=== PATIENT | female | born 1950 | race Caucasian/White ===

== ENCOUNTER 2022-02-20 11:04 | Emergency (ER) | payer MEDICARE, OTHER ==
--- NOTE | 2022-02-20 11:31 | EDPHYS ---
Physician Documentation [facility] Name: Kanika Boateng Age: 72 yrs Sex: Female : 1950 Arrival Date: 02/20/2022 Time: 11:07 Bed Waiting Private MD: ED Physician Earnest Perez HPI: 02/20 11:27 This 72 yrs old Female presents to ER via Unassigned with complaints of Eye Problem. rn 11:27 The patient is experiencing redness, The patient sustained None. to the right eye, rn caused by an unknown mechanism. Onset: The symptoms/episode began/occurred 2 day(s) ago. Duration: the symptoms are continuous. Aggravated by nothing. Alleviated by nothing. Associated signs and symptoms: Pertinent negatives: fever, headache, runny nose. Severity of symptoms: At their worst the symptoms were mild in the emergency department the symptoms are unchanged. The patient has not experienced similar symptoms in the past. The patient has not recently seen a physician. Pt reports noticed right eyelid swelling a couple of days ago, is progressing, no eyeball pain or vision changes, no drainage, no fever. Does not wear contacts.. Historical: - Allergies: 11:28 No Known Allergies; ap3 - Home Meds: 11:28 Allopurinol Oral [Active]; famotidine Oral [Active]; montelukast oral [Active]; aspirin ap3 81 mg Oral cpDR [Active]; amlodipine oral [Active]; atorvastatin oral [Active]; Lisinopril Oral [Active]; Metoprolol Tartrate Oral [Active]; Zolpidem Tartrate Oral [Active]; - PMHx: 11:28 Hypertensive disorder; Hypercholesterolemia; Gout; ap3 - Immunization history:: Client reports having NOT received the Covid vaccine. - Social history:: Smoking status: Patient reports the use of cigarette tobacco products, denies chronic smoking, but will smoke occasionally. - Family history:: not pertinent. - Hospitalizations: : No recent hospitalization is reported. ROS: 11:27 Constitutional: Negative for fever, chills, and weight loss, Eyes: + right eye swelling rn and redness Exam: 11:27 Visual Acuity: Visual acuity is within normal limits. rn 11:27 Constitutional: This is a well developed, well nourished patient who is awake, alert, and in no acute distress. Head/Face: Normocephalic, atraumatic. Eyes: Left eye normal. Right eye with surroundign erythema, + stye/swelling right inner eyelid when everted. PERRL without painful eye movements. No erythema or conjunctiva. No hyphema or hypopyon. Vital Signs: 11:27 BP 167 / 90; Pulse 70; Resp 17; Temp 98.7; Pulse Ox 100% ; Weight 61.23 kg; Height 5 ap3 ft. 7 in. (170.18 cm); 11:27 Body Mass Index 21.14 (61.23 kg, 170.18 cm) ap3 MDM: 11:08 Patient medically screened. rn 11:27 Differential diagnosis: periorbital cellulitis, stye. Data reviewed: vital signs, rn nurses notes, and as a result, I will discharge patient. Counseling: I had a detailed discussion with the patient and/or guardian regarding: the historical points, exam findings, and any diagnostic results supporting the discharge/admit diagnosis, the need for outpatient follow up, to return to the emergency department if symptoms worsen or persist or if there are any questions or concerns that arise at home. Special discussion: I discussed with the patient/guardian in detail that at this point there is no indication for admission to the hospital. It is understood, however, that if the symptoms persist or worsen the patient needs to return immediately for re-evaluation. Based on the history and exam findings, there is no indication for further emergent testing or inpatient evaluation. I discussed with the patient/guardian the need to see the opthamologist for further evaluation of the symptoms. Administered Medications: No medications were administered Disposition Summary: 02/20/22 11:30 Discharge Ordered Location: Home rn Problem: new rn Symptoms: are unchanged rn Condition: Stable rn Diagnosis - Hordeolum internum right upper eyelid rn - Periorbital cellulitis rn Followup: rn - With: Private Physician - When: As needed - Reason: Recheck today's complaints, Re-evaluation by your physician Discharge Instructions: - Discharge Summary Sheet rn - Stye rn - Preseptal Cellulitis, Adult rn Forms: - Medication Reconciliation Form rn - Thank You Letter rn - Antibiotic consultant internship - Prescription Opioid Use rn Prescriptions: - Cephalexin 500 mg Oral Capsule - take 1 capsule by ORAL route every 12 hours for 10 days; 20 capsule; Refills: rn 0, Product Selection Permitted - Bactrim DS 800-160 mg Oral Tablet - take 1 tablet by ORAL route every 12 hours for 10 days; 20 tablet; Refills: 0, rn Product Selection Permitted Signatures: Earnest Perez MD MD rn Prokisch, Amanda, RN RN ap3
--- NOTE | 2022-02-20 11:31 | ER ---
Nurse's Notes [facility] Name: Kanika Boateng Age: 72 yrs Sex: Female : 1950 Arrival Date: 02/20/2022 Time: 11:07 Bed Waiting Private MD: Diagnosis: Hordeolum internum right upper eyelid;Periorbital cellulitis Presentation: 02/20 11:27 Chief complaint: Patient states: she has been having right eye swelling for approx 4 ap3 days. patient reports she noticed it was getting bigger and wanted to come be evaluated. Coronavirus screen: At this time, the client does not indicate any symptoms associated with coronavirus-19. Ebola Screen: No symptoms or risks identified at this time. Initial Sepsis Screen: Does the patient meet any 2 criteria? No. Patient's initial sepsis screen is negative. Does the patient have a suspected source of infection? No. Patient's initial sepsis screen is negative. Risk Assessment: Do you want to hurt yourself or someone else? Patient reports no desire to harm self or others. Onset of symptoms was February 16, 2022. 11:27 Method Of Arrival: Ambulatory ap3 11:27 Acuity: VERONICA 4 ap3 Triage Assessment: 11:28 General: Appears in no apparent distress. Behavior is calm, cooperative. Pain: ap3 Complains of pain in right eye. EENT: Eyes swelling noted to right eye. Neuro: Level of Consciousness is awake, alert, obeys commands, Oriented to person, place, time, situation, Appropriate for age. Historical: - Allergies: 11:28 No Known Allergies; ap3 - Home Meds: 11:28 Allopurinol Oral [Active]; famotidine Oral [Active]; montelukast oral [Active]; aspirin ap3 81 mg Oral cpDR [Active]; amlodipine oral [Active]; atorvastatin oral [Active]; Lisinopril Oral [Active]; Metoprolol Tartrate Oral [Active]; Zolpidem Tartrate Oral [Active]; - PMHx: 11:28 Hypertensive disorder; Hypercholesterolemia; Gout; ap3 - Immunization history:: Client reports having NOT received the Covid vaccine. - Social history:: Smoking status: Patient reports the use of cigarette tobacco products, denies chronic smoking, but will smoke occasionally. - Family history:: not pertinent. - Hospitalizations: : No recent hospitalization is reported. Screenin:31 Abuse screen: Denies threats or abuse. Nutritional screening: No deficits noted. ap3 Tuberculosis screening: No symptoms or risk factors identified. Fall Risk None identified. Vital Signs: 11:27 BP 167 / 90; Pulse 70; Resp 17; Temp 98.7; Pulse Ox 100% ; Weight 61.23 kg; Height 5 ap3 ft. 7 in. (170.18 cm); 11: Body Mass Index 21.14 (61.23 kg, 170.18 cm) ap3 ED Course: 11:07 Patient arrived in ED. rg4 11:08 Earnest Perez MD is Attending Physician. rn 11:28 Triage completed. ap3 11:31 Arm band placed on right wrist. ap3 11:31 Patient has correct armband on for positive identification. Pulse ox on. NIBP on. ap3 11:31 No provider procedures requiring assistance completed. Patient did not have IV access ap3 during this emergency room visit. Administered Medications: No medications were administered Medication: 11: VIS not applicable for this client. ap3 Outcome: 11:30 Discharge ordered by . rn 11:34 Discharged to home ambulatory. ap3 11:34 Condition: good 11:34 Discharge instructions given to patient, Instructed on discharge instructions, follow up and referral plans. medication usage, Demonstrated understanding of instructions, follow-up care, medications, Prescriptions given X 2. 11:34 Patient left the ED. ap3 Signatures: Earnest Perez MD MD rn Garcia, Rubi rg4 Dalia Faulkner RN RN ap3
[2022-02-20 11:56] VITALS: BP 167/90; TEMP 98.7; O2SAT 100
== END 2022-02-20 11:34 | disposition home or self-care (01) ==
LOC: ER 11:04
DX: H00.021 Hordeolum internum right upper eyelid (principal); L03.213 Periorbital cellulitis; E78.00 Pure hypercholesterolemia, unspecified; I10 Essential (primary) hypertension; F17.210 Nicotine dependence, cigarettes, uncomplicated; Z79.82 Long term (current) use of aspirin
CPT/HCPCS: 99283